=== PATIENT | female | born 1960 | race Caucasian/White ===

== ENCOUNTER 2020-02-11 03:26 | Emergency (ER) | payer MEDICARE, MEDICAID, SELFPAY ==
[2020-02-11] VITALS (10 sets, daily range): BP systolic 144–169; BP diastolic 92–130; PULSE 86–112; RESP 16–19; TEMP 36.9; O2SAT 97–98; BMI 32.3
--- NOTE | 2020-02-11 03:35 | CTR_ITS ---
PROCEDURE INFORMATION: Exam: CT Abdomen And Pelvis With Contrast Exam date and time: 02/11/2020 4:27 AM Age: 59 years old Clinical indication: Abdominal pain; Generalized; Prior surgery; Surgery date: 6+ months; Surgery type: Appy, gastric sleeve TECHNIQUE: Imaging protocol: Computed tomography of the abdomen and pelvis with intravenous contrast. Radiation optimization: All CT scans at this facility use at least one of these dose optimization techniques: automated exposure control; mA and/or kV adjustment per patient size (includes targeted exams where dose is matched to clinical indication); or iterative reconstruction. Contrast material: OMNI 300; Contrast volume: 95 ml; Contrast route: INTRAVENOUS (IV); COMPARISON: No relevant prior studies available. RADIATION DOSE METRICS: Total DLP (mGy-cm): 1203.22 FINDINGS: Liver: Liver shows lobulated outline. A tiny cyst is present in the right lobe and another 1 in the left lobe. No mass. Gallbladder and bile ducts: The gallbladder is not visualized. No ductal dilation. Pancreas: Normal. No ductal dilation. Spleen: Normal. No splenomegaly. Adrenals: Normal. No mass. Kidneys and ureters: Normal. No hydronephrosis. Stomach and bowel: Surgical suture line is seen in the stomach. No obstruction. No mucosal thickening. Constipation is present Appendix: No evidence of appendicitis. Unremarkable appendix. Intraperitoneal space: Unremarkable. No free air. Tiny amount of ascites is seen around the liver. Vasculature: An IVC filter is in place the. No abdominal aortic aneurysm. Lymph nodes: Unremarkable. Calcification and atherosclerotic changes are seen in the aorta No enlarged lymph nodes. Urinary bladder: Unremarkable as visualized. Reproductive: Unremarkable as visualized. Bones/joints: Multiple compression fractures are seen in the lumbar spine and lower thoracic spine. Multilevel degenerative changes are present. A right hip prosthesis is present. Dislocated left hip is seen with evidence of previous hip replacement but missing prosthesis. Fluid collection is present in the left hip joint Soft tissues: Unremarkable. CT/CT abdomen pelvis w con* [id number] IMPRESSION: 1. Irregular on the liver is consistent with cirrhosis of the liver. Tiny amount of ascites is present. The spleen is not enlarged. 2. Postop changes are present in the stomach. 3. An IVC filter is in place. 4. Multiple compression fractures and degenerative changes are seen lumbar spine. 5. Dislocation of the left hip with fluid collection and other findings as described. Radiation Dose CTDIVOL = (mGy): DLP = 1203.22 (mGy-cm)
--- NOTE | 2020-02-11 03:51 | ED_ITS ---
HPI - Abdominal Pain General: Chief Complaint: Abdominal Pain Stated Complaint: ABDOMINAL PAIN Time Seen by Provider: 02/11/20 03:35 History of Present Illness: HPI narrative: 59-year-old female here from a skilled nursing complaining of left lower quadrant pain and vomiting. She says this pain started yesterday. She has not had pain like this before. No diarrhea, no blood in the stool. She has a history of a couple of belly surgeries including hysterectomy and gastric sleeve surgery. MD elicited complaint: abdominal pain Pertinent past history: none Onset (ago): day(s) (2) Location: [facility] Severity: moderate Quality: stabbing and aching Radiation: none Migration to: no migration Exacerbating factors: movement Relieving factors: nothing Associated Symptoms: Reports nausea and vomiting; Denies dysuria, fever(s), hematochezia, hematuria, fecal incontinence and loose stools Review of Systems Const: Denies: fever(s) Eyes: Denies: change in vision ENMT: Denies: odynophagia or sinus pain Card: Denies: chest pain, palpitations or irregular heart rhythm Resp: Denies: dyspnea, productive cough, non-productive cough or wheezing GI: Reports: nausea and vomiting; Denies: fecal incontinence or hematochezia : Denies: dysuria or hematuria Musc: Denies: neck pain or back pain Skin/Breast: Denies: rash or erythema Neuro: Denies: headache(s), dizziness or vertigo Psych: Denies: anxiety Physical Exam Const: GENERAL APPEARANCE: well developed ORIENTATION/CONSCIOUSNESS: Yes oriented to person, Yes oriented to place and Yes oriented to time HENMT: COMMON NORMALS: normocephalic, external ears normal and Normal external nose present HEAD & SCALP: normocephalic FACE & SINUS: normal facial exam NOSE: Normal external nose present and No nasal discharge present EXTERNAL EAR: Yes external ears normal Eye: COMMON NORMALS: Equal, round and reactive pupils present, EOMs intact bilaterally and conjunctivae normal EYELID: eyelids normal CONJUNCTIVA: Yes conjunctivae normal PUPIL: Yes Equal, round and reactive pupils present Neck/C-Spine: GENERAL: No tracheal deviation Chest: COMMONS NORMALS: normal inspection of the chest CHEST: No tenderness Resp: COMMON NORMALS: clear to auscultation bilaterally EFFORT & INSPECTION: No tachypneic, No respiratory distress, No retractions, No uses accessory muscles and No tracheal deviation AUSCULTATION: clear to auscultation bilaterally, no rhonchi, no wheezes and lung sounds not diminished Cardio: COMMON NORMALS: regular rate and regular rhythm RATE: regular rate RHYTHM: regular rhythm HEART SOUNDS: no murmurs PERIPHERAL PULSES: radial pulses present GI: INSPECTION: No abdominal distension AUSCULTATION: No Hyperactive bowel sounds present and No Hypoactive bowel sounds present PALPATION: Yes Tenderness to palpation present (GI) Details: LLQ, Yes Guarding due to palpation present (GI) and No Rigid due to palpation PERCUSSION: no dullness to percussion and no tympanic to percussion Neuro: SENSORIUM/ORIENTATION: Yes oriented to person, Yes oriented to place and Yes oriented to time Psych: COMMON NORMALS: mental status grossly normal Skin: COMMON NORMALS: no rashes or lesions noted GENERAL SKIN EXAM: no rashes or lesions noted Course Vital Signs: Vital signs: Vital Signs Temperature 98.4 F 02/11/20 03:35 Pulse Rate 92 02/11/20 06:00 Respiratory Rate 18 02/11/20 06:00 Blood Pressure 150/98 02/11/20 06:00 Pulse Oximetry 97 02/11/20 06:00 MDM - Abdominal Pain MDM Narrative: Medical decision making narrative: 59-year-old skilled nursing patient. She comes in with left lower quadrant pain. It appears she is on quite a bit of pain medicine and baclofen in the skilled nursing. Pain improved after Dilaudid here. Her white blood cell count 6. She is afebrile. Her potassium is mildly low. CT scan shows constipation. No diverticulitis or other significant pathology in the left lower quadrant. She was quite hypertensive here requiring antihypertensives. Does not appear that she has been treated for hypertension in the skilled nursing. We will prescribe something for her. Lab Data: Labs: Lab Results 02/11/20 02/11/20 02/11/20 Range/Units 03:55 03:55 03:55 WBC 6.0 (4.0-10.0) 10^3/ uL RBC 5.10 (4.1-5.3) 10^6/u L Hgb 16.1 H (11.5-15.3) g/dL Hct 47.1 H (37.0-47.0) % MCV 92.4 (81-99) fL MCH 31.6 (28.0-34.0) pg MCHC 34.2 (30.0-36.0) g/dL RDW 14.2 (12.1-15.1) % Plt Count 156 (130-400) 10^3/c mm MPV 9.7 (7.4-10.4) fL Neut % (Auto) 71.1 % Lymph % (Auto) 9.8 % [place] % (Auto) 18.6 % Eos % (Auto) 0.0 % Baso % (Auto) 0.2 % Neut # (Auto) 4.29 (1.8-7.7) 10^3/u L Lymph # (Auto) 0.6 L (0.8-4.8) 10^3/u L [place] # (Auto) 1.1 H (0.2-0.9) 10^3/u L Eos # (Auto) 0.0 (0.0-0.8) 10^3/u L Baso # (Auto) 0.0 (0.0-0.1) 10^3/u L Nucleated RBC % (a uto) 0 % Nucleated RBCs # 0.0 /100WBC Sodium 132 L (136-145) mmol/L Potassium 3.2 L (3.5-5.1) mmol/L Chloride 97 L (98-107) mmol/L Carbon Dioxide 23 (22-29) mmol/L Anion Gap 15.2 (5-19) BUN 6 (6-20) mg/dL Creatinine 0.2 L (0.5-0.9) mg/dL GFR Calculation 363.6 H (90-130) mL/min Glucose 138 H (65-115) mg/dL Calculated Osmolal ity 274 L (285-295) mOsm/k g Lactate 1.3 (0.5-2.2) mmol/L Calcium 8.5 (8.5-10.5) mg/dL Total Bilirubin 1.5 H (0.15-1.2) mg/dL AST 53 H (0-32) U/L ALT 27 (0-33) U/L Alkaline Phosphata se 166 H (35-105) IU/L C-Reactive Protein 11.6 H (0.0-4.9) mg/L Total Protein 6.9 (6.6-8.7) g/dL Albumin 3.3 L (3.5-5.2) g/dL Globulin 3.6 (1.3-4.6) g/dL Lipase 28 (13-60) U/L Urine Color (Yellow) Urine Appearance (CLEAR) Urine pH (5-7) Ur Specific Gravit y (1.005-1.030) Urine Protein (Negative) Urine Glucose (UA) (Normal) Urine Ketones (Negative) Urine Blood (Negative) Urine Nitrate (Negative) Urine Bilirubin (Negative) Urine Urobilinogen (Negative) mg/dL Ur Leukocyte Beatrice ase (Negative) Urine RBC (0-2) /hpf Urine WBC (0-5) /hpf Ur Squamous Epith Cells (0-5) /hpf Amorphous Sediment Urine Bacteria (NONE) /hpf Urine Mucus /hpf 02/10/ Range/Units 03:55 WBC (4.0-10.0) 10^3/ uL RBC (4.1-5.3) 10^6/u L Hgb (11.5-15.3) g/dL Hct (37.0-47.0) % MCV (81-99) fL MCH (28.0-34.0) pg MCHC (30.0-36.0) g/dL RDW (12.1-15.1) % Plt Count (130-400) 10^3/c mm MPV (7.4-10.4) fL Neut % (Auto) % Lymph % (Auto) % [place] % (Auto) % Eos % (Auto) % Baso % (Auto) % Neut # (Auto) (1.8-7.7) 10^3/u L Lymph # (Auto) (0.8-4.8) 10^3/u L [place] # (Auto) (0.2-0.9) 10^3/u L Eos # (Auto) (0.0-0.8) 10^3/u L Baso # (Auto) (0.0-0.1) 10^3/u L Nucleated RBC % (a uto) % Nucleated RBCs # /100WBC Sodium (136-145) mmol/L Potassium (3.5-5.1) mmol/L Chloride (98-107) mmol/L Carbon Dioxide (22-29) mmol/L Anion Gap (5-19) BUN (6-20) mg/dL Creatinine (0.5-0.9) mg/dL GFR Calculation (90-130) mL/min Glucose (65-115) mg/dL Calculated Osmolal ity (285-295) mOsm/k g Lactate (0.5-2.2) mmol/L Calcium (8.5-10.5) mg/dL Total Bilirubin (0.15-1.2) mg/dL AST (0-32) U/L ALT (0-33) U/L Alkaline Phosphata se (35-105) IU/L C-Reactive Protein (0.0-4.9) mg/L Total Protein (6.6-8.7) g/dL Albumin (3.5-5.2) g/dL Globulin (1.3-4.6) g/dL Lipase (13-60) U/L Urine Color Yellow (Yellow) Urine Appearance Clear (CLEAR) Urine pH 6.5 (5-7) Ur Specific Gravit y 1.015 (1.005-1.030) Urine Protein 1+ H (Negative) Urine Glucose (UA) Norm (Normal) Urine Ketones 2+ H (Negative) Urine Blood 2+ H (Negative) Urine Nitrate Negative (Negative) Urine Bilirubin Neg (Negative) Urine Urobilinogen 4 H (Negative) mg/dL Ur Leukocyte Beatrice ase Negative (Negative) Urine RBC 5-10 H (0-2) /hpf Urine WBC 0-4 H (0-5) /hpf Ur Squamous Epith Cells 5-10 H (0-5) /hpf Amorphous Sediment Not Reportable Urine Bacteria 1+ H (NONE) /hpf Urine Mucus 3+ /hpf Discharge Plan Discharge Patient Disposition: Xfer SNF Condition: Stable Prescriptions: New magnesium citrate Solution 300 ml PO DAILY PRN (Reason: constipation) Qty: 296 RF: 0 amlodipine 10 mg tablet 10 mg PO DAILY PRN (Reason: hypertension) Qty: 30 RF: 0 No Action multivitamin Tablet 1 tab PO DAILY RF: 0 furosemide 40 mg Tablet 40 mg PO DAILY RF: 0 oxybutynin chloride 15 mg Tablet Extended Release 24hr 15 mg PO DAILY RF: 0 melatonin 3 mg Tablet 3 mg PO DAILY RF: 0 folic acid 400 mcg Tablet 0.4 mg PO DAILY RF: 0 Xanax 0.5 mg Tablet 0.5 mg PO DAILY RF: 0 cyanocobalamin (vitamin B-12) 500 mcg Tablet 500 mcg PO DAILY RF: 0 ferrous sulfate 325 mg (65 mg iron) Tablet 325 mg PO DAILY RF: 0 fluoxetine 20 mg Tablet 30 mg PO DAILY RF: 0 Lidoderm 5 % Adhesive Patch,Medicated 1 patch TOPICAL DAILY RF: 0 vitamin B complex Tablet 1 tab PO DAILY RF: 0 Miralax 17 gram/dose Powder 17 g PO DAILY PRN (Reason: Constipation) RF: 0 Lactobacillus acidophilus Capsule 10 mg PO DAILY RF: 0 Prilosec OTC 20 mg Tablet,Delayed Release (Dr/Ec) 20 mg PO DAILY RF: 0 cholecalciferol (vitamin D3) 25 mcg (1,000 unit) Tablet,Chewable 50 mcg PO DAILY RF: 0 magnesium oxide 400 mg magnesium Tablet 400 mg PO DAILY RF: 0 Xanax 0.5 mg Tablet 0.5 mg PO BID RF: 0 Neurontin 800 mg Tablet 800 mg PO TID RF: 0 morphine 30 mg Tablet 30 mg PO Q4H PRN (Reason: Pain) RF: 0 Colace 100 mg Capsule 100 mg PO BID RF: 0 bupropion HCl 150 mg Tablet Extended Release 24 Hr 150 mg PO BID RF: 0 oxycodone 20 mg Tablet 20 mg PO Q8H PRN (Reason: Pain) RF: 0 potassium chloride 20 mEq Tablet Extended Release 20 meq PO BID RF: 0 baclofen 5 mg Tablet 10 mg PO TID PRN (Reason: Spasms) RF: 0 Discharge Orders: Discharge Order (Routine); Ordered 02/11/20 Ordered By: Ector Ramires Referrals: Gautam Chang [Primary Care Provider] - Discharge Diet: Advance as tolerated and Clear Liquid Discharge Activity: Increase activity as tolerated Patient Instructions: Constipation (ED), Hypertension (ED) Activity Restrictions/Additional Instructions: Use the magnesium citrate until good stool is produced. As needed following. Check blood pressures twice daily. Use the amlodipine if blood pressure is above 150 systolic. Return for fever greater than 100, vomiting liquids or medications, worsening pain despite treatment, other concerning symptoms. Coding Level of Care Code ED Retail Director for Chg Fwd Exam Comprehensive
[2020-02-11] MEDS: sodium chloride 0.9% 1,000 ML 999 ML IV (04:01)
[2020-02-11] MEDS: ondansetron 2 mg/ML SDV 2 mL 4 MG IVP (04:04)
[2020-02-11] MEDS: HYDROmorphone 1 mg/mL INJ 1 mL IVP ×2 (04:06→05:48)
[2020-02-11 04:08] LABS: Basophils % 0.2 %; Hematocrit 47.1 % (37.0-47.0); Hemoglobin 16.1 g/dL (11.5-15.3); Lymphocytes # 0.6 10^3/uL (0.8-4.8); Lymphocytes % 9.8 %; Mean Corpuscular HGB Conc 34.2 g/dL (30.0-36.0); Mean Corpuscular Hemoglobin 31.6 pg (28.0-34.0); Mean Corpuscular Volume 92.4 fL (81-99); Mean Platelet Volume 9.7 fL (7.4-10.4); Monocytes # 1.1 10^3/uL (0.2-0.9); Monocytes % 18.6 %; Neutrophils # 4.29 10^3/uL (1.8-7.7); Neutrophils % 71.1 %; Nucleated Red Blood Cells % 0 %; Platelet Count 156 10^3/cmm (130-400); Red Cell Distribution Width 14.2 % (12.1-15.1)
[2020-02-11 04:24] LABS: Lactate (Lactic Acid level) 1.3 mmol/L (0.5-2.2)
[2020-02-11 04:25] LABS: Alanine Aminotransferase 27 U/L (0-33); Albumin Level 3.3 g/dL (3.5-5.2); Alkaline Phosphatase 166 IU/L (35-105); Anion Gap 15.2 (5-19); Aspartate Amino Transferase 53 U/L (0-32); Blood Urea Nitrogen 6 mg/dL (6-20); C Reactive Protein 11.6 mg/L (0.0-4.9); Calcium 8.5 mg/dL (8.5-10.5); Carbon Dioxide 23 mmol/L (22-29); Chloride 97 mmol/L (98-107); Globulin 3.6 g/dL (1.3-4.6); Glomerular Filtration Rate 363.6 mL/min (90-130); Glucose 138 mg/dL (65-115); Lipase 28 U/L (13-60); Osmolality Calculated 274 mOsm/kg (285-295); Potassium 3.2 mmol/L (3.5-5.1); Sodium 132 mmol/L (136-145); Total Bilirubin 1.5 mg/dL (0.15-1.2); Total Protein 6.9 g/dL (6.6-8.7)
--- NOTE | 2020-02-11 04:32 | PC.SOCIAL ---
Patient is a patient from [facility], spoke with the patient and with [facility], the patient is there for therapy skilled. They are working on eventually getting the patient up to [facility]. for Skilled therapy. She does not get out of the bed except to potty. They do use hoyerlift. She has a brace that she uses when up from bed. She does have a walker, wheelchair, electric scooter, hospital bed, bradley lift.The patient is in readmission for lung cancer. She sees a specialist in [place] Dr. Sebastian. Her PCP is Dr Tony Gleason from [facility] in [facility]. The Medical Advanced directives/DPOA is in the chart. Her DPOA is son Rich Kyle and her contact is Mady Jimenez, the contact they use at the [facility] Patient is on Oxygen [address] [facility]. Patient will need Stretcher for transport as she is not able to sit up.
[2020-02-11] MEDS: iohexol 300 mg/mL 100 mL Btl IV (04:42)
[2020-02-11 04:48] LABS: Glucose Urine UA Norm (Normal); Protein Urine 1+ (Negative); Specific Gravity, Urine 1.015 (1.005-1.030); Urine Appearance Clear (CLEAR); Urine Color Yellow (Yellow); pH Urine 6.5 (5-7)
[2020-02-11 04:49] LABS: Add Urine Microscopic? YES; Bilirubin Urine Neg (Negative); Blood Urine 2+ (Negative); Ketones Urine 2+ (Negative); Leukocyte Esterase Urine Negative (Negative); Nitrate Urine Negative (Negative); Urobilinogen Urine 4 mg/dL (Negative)
[2020-02-11 04:50] LABS: Add Urine Culture? No; Bacteria Urine 1+ /hpf; Mucus Urine 3+ /hpf; WBC Urine 0-4 /hpf (0-5)
--- NOTE | 2020-02-11 04:54 | PC.NURSE ---
Reports last bowel movement Wednesday
[2020-02-11] MEDS: amlodipine 10 mg Tablet PO (05:44)
[2020-02-11] MEDS: labetalol 5 mg/mL SDV 20mL 20 MG IVP (05:44)
--- NOTE | 2020-02-11 06:29 | PC.NURSE ---
Urinary catheter discontinued intact 600 ml output
== END 2020-02-11 08:01 | disposition skilled nursing facility (03) ==
PROVIDERS: Emergency Provider Emergency Medicine; PCP Family Medicine
DX: R10.9 Unspecified abdominal pain (principal)
CPT/HCPCS: 12345; 51702; 74177; 80053; 81001; 83605; 83690; 85025; 86140; 96361; 96374; 96375; 96376; 99283; 99284; J1170; J2405; J3490; J7030; Q9967